=== PATIENT | female | born 1995 | race American Indian/Alaskan Native ===

== ENCOUNTER 2020-09-18 07:11 | Observation (INO) | payer BC ==
--- NOTE | 2020-09-18 07:25 | Event Note ---
ED Screening Note ED Screening Note: hx addisons. n/v cant keep prednisone or fludro down told her to come here menses current This initial assessment/diagnostic orders/clinical plan/treatment(s) is/are subject to change based on patients health status, clinical progression and re- assessment by fellow clinical providers in the ED. Further treatment and workup at subsequent clinical providers discretion. Patient/guardian urged not to elope from the ED as their condition may be serious if not clinically assessed and managed. Initial orders include: labs ua random cortisol
[2020-09-18 07:58] LABS: HCG Qualitative,Urine Negative (Negative)
[2020-09-18 08:01] LABS: Bilirubin,Urine NEG (Negative); Blood,Urine LG (Negative); Color,Urine Yellow (Yellow); Mucus,Urine FEW /HPF; RBC,Urine > 182.0 /HPF (0.0-6.0)
[2020-09-18 08:07] LABS: Hematocrit 32.8 % (30.3-42.9); Hemoglobin 10.3 gm/dl (10.1-14.3); Mean Corpuscular HGB Conc 31 % (30-34); Platelet Count 268 K/mm3 (140-440); Red Blood Count 4.69 M/mm3 (3.65-5.03); Red Cell Distribution Width 15.7 % (13.2-15.2)
--- NOTE | 2020-09-18 08:07 | Emergency Department Report ---
ED General Adult HPI - General Chief complaint: Nausea/Vomiting/Diarrhea Stated complaint: BODYACHE/HEADACHE/EMESIS PUI?: No Time Seen by Provider: 09/18/20 07:23 Source: patient, family, RN notes reviewed Mode of arrival: Ambulatory Limitations: No Limitations - History of Present Illness Initial comments: The patient was evaluated in the emergency department for symptoms described in the history of present illness. He/she was evaluated in the context of the global COVID-19 pandemic, which necessitated consideration that the patient might be at risk for infection with the virus that causes COVID-19. Institutional protocols and algorithms that pertain to the evaluation of patients at risk for COVID-19 are in a state of rapid change based on information released by regulatory bodies including the CDC and federal and s valente organizations. These policies and algorithms were followed during the patient's care in the emergency department. Please note that these policies, procedures and recommendations changed on a rapid basis. During the history and physical examination, I am chaperoned/escorted by THERESE ROSADO Primary CARE doctor: Dr. 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 The patient is a 25-year-old female. She is not known to myself previously. She presents to the ER today with a complaint of painless nausea, vomiting. She states she feels like she is having an addisonian crisis. She denies fever, loss of taste and smell. She has a mild headache which is typical of her previous episodes of crises. She denies loss of vision, sore throat, chest pain, shortness of breath, cough, urinary symptoms. She states that she is not . She does not smoke or use recreational drugs. She is compliant with her medications. She ran out of her fludrocortisone this morning. She has a refill waiting for her at a local pharmacy. She denies sick contacts. She also describes diffuse skin hyperpigmentation, and she also describes bilateral thigh numbness, which is chronic. Symptoms typically improved with fluids and nausea medication. -: Gradual, days(s) Location: left, right, lower extremity (Bilateral lower extremity lateral thigh numbness, from proximal hip to knee.) Severity scale (0 -10): 0 Quality: aching Consistency: intermittent Improves with: medication, rest - Related Data Allergies Allergy/AdvReac Type Severity Reaction Status Date / Time No Known Allergies Allergy Unverified 09/18/20 07:18 ED Review of Systems ROS: Stated complaint: BODYACHE/HEADACHE/EMESIS Other details as noted in HPI Constitutional: malaise. denies: fever Eyes: denies: eye discharge, vision change ENT: denies: throat pain Respiratory: denies: cough Cardiovascular: palpitations. denies: chest pain Gastrointestinal: nausea, vomiting. denies: abdominal pain, diarrhea Genitourinary: denies: dysuria Musculoskeletal: denies: back pain Skin: change in color Neurological: headache. denies: numbness, paresthesias, confusion Hematological/Lymphatic: denies: easy bleeding ED Past Medical Hx - Past Medical History Additional medical history: ADDISION - Surgical History Additional Surgical History: CYST REMOVED/ PART OF BLADDER REMOVED. - Social History Smoking Status: Never Smoker Substance Use Type: None ED Physical Exam - General Limitations: No Limitations General appearance: alert, in no apparent distress, obese - Head Head exam: Present: atraumatic, normocephalic - Eye Eye exam: Present: normal appearance, PERRL, EOMI, other (Visual acuity intact to finger counting, color perception, reading at a close distance). Absent: nystagmus - ENT ENT exam: Present: normal exam, normal orophraynx, mucous membranes moist, normal external ear exam - Neck Neck exam: Present: normal inspection, full ROM. Absent: tenderness, meningismus - Respiratory Respiratory exam: Present: normal lung sounds bilaterally. Absent: respiratory distress, wheezes, rales, rhonchi, stridor, chest wall tenderness - Cardiovascular Cardiovascular Exam: Present: normal rhythm, tachycardia, normal heart sounds. Absent: systolic murmur, diastolic murmur, rubs, gallop - GI/Abdominal GI/Abdominal exam: Present: soft, normal bowel sounds. Absent: distended, tenderness, guarding, rebound, rigid, pulsatile mass - Extremities Exam Extremities exam: Present: normal inspection (Describes decreased sensation to light touch, chronically, in the bilateral lateral thigh distribution, stopping at the knee), full ROM, other (2+ pulses noted in the bilateral upper and lower extremities. There is no palpable cord. negative Homans sign. Muscular compartments are soft. The pelvis is stable.). Absent: pedal edema, calf tenderness - Back Exam Back exam: Present: normal inspection, full ROM. Absent: tenderness, CVA tenderness (R), CVA tenderness (L), paraspinal tenderness, vertebral tenderness - Neurological Exam Neurological exam: Present: alert, oriented X3, normal gait, other (No facial droop. Tongue midline. Extraocular movements intact bilaterally. Facial sensation intact to light touch in V1, V2, V3 distribution bilaterally. 5 and a 5 strength in 4 extremities. Sensation intact to light touch in 4 extremities.). Absent: motor sensory deficit (Sensation is intact to light touch, pinch in the bilateral lower extremities, with downgoing plantar reflexes bilaterally, and proprioception intact in the bilateral lower extremity) - Psychiatric Psychiatric exam: Present: anxious - Skin Skin exam: Present: warm, dry, intact, normal color. Absent: rash ED Course Vital Signs 09/18/20 07:24 Temperature 99 F Pulse Rate 116 H Respiratory 18 Rate Blood Pressure 132/86 [Right] O2 Sat by Pulse 100 Oximetry - Reevaluation(s) Reevaluation #1: 09/18/20 08:44 Differential diagnosis, including but not limited to: Addisonian crisis, dehydration, electrolyte derangement, pneumonia, urinary tract infection Assessment and plan: 25-year-old female, complaining of nausea, vomiting, without abdominal pain, typically takes prednisone and fludrocortisone. She is afebrile with reassuring vital signs, with minimal tachycardia. She states she does not smoke or consume drugs. Abdomen soft and benign. Has a GCS of 15, with a nonfocal neurologic examin ation. We will treat her symptoms, urinalysis not consistent with urinary tract infection, patient currently menstruating, obtain x-ray of the chest, and reassess. 09/18/20 09:21 Patient feels improved. Chest x-ray negative. Laboratory studies suggest metabolic acidosis, dehydration, and profound hypomagnesemia. In addition, she is found to have a prolonged QT, prolonged QTc interval. We have recommended admission for supportive care, cardiac monitoring, and correction of hypomagnesemia. Have discussed this with the patient, who is amenable to this plan of care. She states that she feels somewhat improved. Hospital physician, Dr. Luis Eduardo Mancini to admit ED Medical Decision Making - Lab Data Result diagrams: 09/18/20 07:35 09/18/20 07:35 Vital Signs 09/18/20 07:24 Temperature 99 F Pulse Rate 116 H Respiratory 18 Rate Blood Pressure 132/86 [Right] O2 Sat by Pulse 100 Oximetry Lab Results 09/18/20 09/18/20 09/18/20 Range/Units 07:35 07:35 07:35 WBC 5.4 (4.5-11.0) K/mm3 RBC 4.69 (3.65-5.03) M/mm3 Hgb 10.3 (10.1-14.3) gm/dl Hct 32.8 (30.3-42.9) % MCV 70 L (79-97) fl MCH 22 L (28-32) pg MCHC 31 (30-34) % RDW 15.7 H (13.2-15.2) % Plt Count 268 (140-440) K/mm3 Sodium 131 L (137-145) mmol/L Potassium 5.4 H (3.6-5.0) mmol/L Chloride 98.9 (98-107) mmol/L Carbon Dioxide 20 L (22-30) mmol/L Anion Gap 18 mmol/L BUN 13 (7-17) mg/dL Creatinine 0.6 (0.6-1.2) mg/dL Estimated GFR > 60 ml/min BUN/Creatinine Ratio 22 % Glucose 70 (65-100) mg/dL Calcium 9.7 (8.4-10.2) mg/dL Total Bilirubin 0.60 (0.1-1.2) mg/dL AST 42 H (5-40) units/L ALT 25 (7-56) units/L Alkaline Phosphatase 92 (35-129) units/L Total Protein 8.1 (6.3-8.2) g/dL Albumin 4.7 (3.9-5) g/dL Albumin/Globulin Ratio 1.4 % Lipase 13 (13-60) units/L Urine Color (Yellow) Urine Turbidity (Clear) Urine pH (5.0-7.0) Ur Specific [place] (1.003-1.030) Urine Protein (Negative) mg/dL Urine Glucose (UA) (Negative) mg/dL Urine Ketones (Negative) mg/dL Urine Blood (Negative) Urine Nitrite (Negative) Ur Reducing Substances Urine Bilirubin (Negative) Urine Ictotest Urine Urobilinogen (<2.0) mg/dL Ur Leukocyte Esterase (Negative) Urine WBC (Auto) (0.0-6.0) /HPF Urine RBC (Auto) (0.0-6.0) /HPF U Epithel Cells (Auto) (0-13.0) /HPF Urine Mucus /HPF Urine HCG, Qual (Negative) 09/18/20 Range/Units 07:49 WBC (4.5-11.0) K/mm3 RBC (3.65-5.03) M/mm3 Hgb (10.1-14.3) gm/dl Hct (30.3-42.9) % MCV (79-97) fl MCH (28-32) pg MCHC (30-34) % RDW (13.2-15.2) % Plt Count (140-440) K/mm3 Sodium (137-145) mmol/L Potassium (3.6-5.0) mmol/L Chloride (98-107) mmol/L Carbon Dioxide (22-30) mmol/L Anion Gap mmol/L BUN (7-17) mg/dL Creatinine (0.6-1.2) mg/dL Estimated GFR ml/min BUN/Creatinine Ratio % Glucose (65-100) mg/dL Calcium (8.4-10.2) mg/dL Total Bilirubin (0.1-1.2) mg/dL AST (5-40) units/L ALT (7-56) units/L Alkaline Phosphatase (35-129) units/L Total Protein (6.3-8.2) g/dL Albumin (3.9-5) g/dL Albumin/Globulin Ratio % Lipase (13-60) units/L Urine Color Yellow (Yellow) Urine Turbidity Hazy (Clear) Urine pH 5.0 (5.0-7.0) Ur Specific [place] 1.021 (1.003-1.030) Urine Protein 30 mg/dl (Negative) mg/dL Urine Glucose (UA) Neg (Negative) mg/dL Urine Ketones 80 (Negative) mg/dL Urine Blood Lg (Negative) Urine Nitrite Neg (Negative) Ur Reducing Substances Not Reportable Urine Bilirubin Neg (Negative) Urine Ictotest Not Reportable Urine Urobilinogen 2.0 (<2.0) mg/dL Ur Leukocyte Esterase Neg (Negative) Urine WBC (Auto) 13.0 H (0.0-6.0) /HPF Urine RBC (Auto) > 182.0 (0.0-6.0) /HPF U Epithel Cells (Auto) 3.0 (0-13.0) /HPF Urine Mucus Few /HPF Urine HCG, Qual Negative (Negative) - EKG Data -: EKG Interpreted by Me EKG shows normal: sinus rhythm Rate: normal - EKG Data When compared to previous EKG there are: previous EKG unavailable 09/18/20 09:22 Sinus rhythm, 97 bpm, normal axis, T wave inversions V2, V3, V4 and V5, suspicious for persistent juvenile T wave inversions. QT prolonged, 422 ms. QTC prolonged, 536 ms. Abnormal EKG. - Radiology Data Radiology results: report reviewed, image reviewed X-ray of the chest is negative for acute finding Critical Care Time: Yes Critical care time in (mins) excluding proc time.: 35 Critical care attestation.: If time is entered above; I have spent that time in minutes in the direct care of this critically ill patient, excluding procedure time. ED Disposition Clinical Impression: Hypomagnesemia, Metabolic acidosis, Addisons disease, Dehydration, History of nausea and vomiting, Prolonged Q-T interval on ECG Disposition: OP ADMIT IP TO THIS HOSP Is pt being admited?: Yes Does the pt Need Aspirin: No Condition: Good Referrals: PRIMARY CARE, [Primary Care Provider] - 3-5 Days
[2020-09-18 08:08] LABS: Mean Corpuscular Volume 70 fl (79-97)
[2020-09-18] MEDS ORDERED: LACTATED RINGERS 1,000 ML IV ONE (08:19)
[2020-09-18] MEDS ORDERED: METOCLOPRAMIDE 10 MG/2 ML INJ IV ONE (08:19)
[2020-09-18 08:29] LABS: Alanine Aminotransferase 25 units/L (7-56); Albumin 4.7 g/dL (3.9-5); Blood Urea Nitrogen 13 mg/dL (7-17); Calcium 9.7 mg/dL (8.4-10.2); Hemolysis Index 1
[2020-09-18 08:37] LABS: BUN/Creatinine Ratio 22
--- NOTE | 2020-09-18 08:42 | XRay Report ---
XR chest 1V ap INDICATION / CLINICAL INFORMATION: n/v , weak, becca crisis. COMPARISON: None available. FINDINGS: SUPPORT DEVICES: None. HEART /PULMONARY VASCULATURE: No significant abnormality. LUNGS / PLEURA: No significant pulmonary or pleural abnormality. No pneumothorax. ADDITIONAL FINDINGS: No significant additional findings. IMPRESSION: 1. No acute findings. Signer Name: Gio Lee MD Signed: 09/18/2020 8:38 AM Workstation Name: [id number]
[2020-09-18] MEDS ORDERED: MAGNESIUM SULFATE 2 GM/50 ML BAG IV ONE (09:15)
[2020-09-18] MEDS ORDERED: HYDROCORTISONE SOD SUCC 100 MG/2 ML VIAL IV ONE (09:23)
[2020-09-18] MEDS ORDERED: ACETAMINOPHEN 325 MG TAB PO PRN (09:39)
[2020-09-18] MEDS ORDERED: oxyCODONE /ACETAMINOPHEN 5-325MG TAB PO PRN (09:39)
[2020-09-18] MEDS ORDERED: ONDANSETRON 4 MG/2 ML INJ IV PRN (09:39)
--- NOTE | 2020-09-18 09:51 | History and Physical Report ---
<DAY DAWKINS - Last Filed: 09/18/20 15:10> History of Present Illness Date of examination: 09/18/20 History of present illness: This is a 25 year old with congenital Hooker disease, dyslexia, eczema, anemia s/p Iron infusion and asthma (childhood only) who presented to the ED on 09/18 with complaints of mild headache rated at 6-7/10 and is described as constant, diffuse body aches, diffuse hyperpigmentation, bilateral upper thigh "numbness" and nausea and vomiting 4-5 times yesterday. Upon further questioning patient does not have numbness to bilateral upper thighs however has a throbbing and numbing pain rated at a 8/10 with no alleviating or worsening factors which started today. Patient describes her emesis as yellow in color with no hematemesis or coffee-ground emesis noted. Patient does not complain of any chest pain, chills, shortness of breath, diarrhea, hemoptysis, recent weight loss, night sweats or chills. Patient does endorse having a subjective fever prior to admission. Patient denies any recent sick contacts, recent travel or known exposure to COVID-19. Recommend the emergency department revealed hyponatremia 131, hyperkalemia at 5.4, metabolic acidosis with a CO2 20, prolonged QTC and severe hypomagnesemia at 0.2. In the emergency department she received 3 g of magnesium IV piggyback, 1 L lactated Ringer's, 0.1 mg of Florinef, Reglan and was started on daily magnesium oxide p.o. Patient was admitted to the hospitalist service with acute Hooker's crisis and electrolyte imbalances. Advance care planning conducted in the emergency department, no prior visits to review and home medications reconciled. Past History Past Medical History: other (Joe's disease, Eczema, dyslexia) Past Surgical History: cholecystectomy (2002), Other (craniotomy after ) Social history: single, lives with family, full code. denies: smoking, alcohol abuse, prescription drug abuse, IV drug use Family history: other (sciatica) Medications and Allergies Allergies Allergy/AdvReac Type Severity Reaction Status Date / Time adhesive tape AdvReac Swelling Verified 09/18/20 10:02 Home Medications Medication Instructions Recorded Confirmed Last Taken Type Fludrocortisone [Florinef Tab] 0.05 mg PO QDAY 09/18/20 09/18/20 Unknown History Prednisone [predniSONE ([place]) ER 3 mg PO BID 09/18/20 09/18/20 Unknown History TAB] Active Meds: Active Medications Acetaminophen (Acetaminophen 325 Mg Tab) 650 mg PO Q4H PRN PRN Reason: Pain MILD(1-3)/Fever >100.5/BISHOP Famotidine (Famotidine 20 Mg/2 Ml Inj) 20 mg IV BID [facility] Fludrocortisone Acetate (Fludrocortisone 0.1 Mg Tab) 0.1 mg PO ONCE ONE Stop: 09/18/20 10:01 Hydrocortisone Sodium Succinate (Hydrocortisone Sod Succ 100 Mg/2 Ml Vial) 50 mg IV Q8HR L[facility]AS Magnesium Sulfate 3 gm/ Sodium (Chloride) 106 mls @ 35.333 mls/hr IV ONCE ONE Stop: 09/18/20 13:29 Sodium Chloride (Nacl 0.9% 1000 Ml) 1,000 mls @ 100 mls/hr IV DIRECT [facility] Magnesium Oxide (Magnesium Oxide 400 Mg Tab) 400 mg PO QDAY [facility] Ondansetron HCl (Ondansetron 4 Mg/2 Ml Inj) 4 mg IV Q8H PRN PRN Reason: Nausea And Vomiting Oxycodone/Acetaminophen (Oxycodone /Acetaminophen 5-325mg Tab) 1 tab PO Q6H PRN PRN Reason: Pain, Moderate (4-6) Sodium Chloride (Sodium Chloride 0.9% 10 Ml Flush Syringe) 10 ml IV BID LUCAS Sodium Chloride (Sodium Chloride 0.9% 10 Ml Flush Syringe) 10 ml IV PRN PRN PRN Reason: LINE FLUSH Sodium Polystyrene Sulfonate (Sodium Polystyrene 15 Gm/60 Ml Oral Liqd) 30 gm PO ONCE NR Stop: 09/18/20 15:00 Review of Systems Constitutional: fever (subjective x1 ), no weight loss, no weight gain, no chills, no sweats, no night sweats, no anorexia, no fatigue, no weakness Ears, nose, mouth and throat: headache, no ear pain, no ear discharge, no tinnitis, no decreased hearing, no nose pain, no nasal congestion, no nasal discharge, no sinus pressure, no sinus pain, no epistaxis, no bleeding gums, no dental pain, no mouth pain, no dysphagia, no hoarseness, no sore throat, no swelling in mouth, no swelling in throat, no voice changes, no post-nasal drip Cardiovascular: no chest pain, no orthopnea, no palpitations, no rapid/irregular heart beat, no edema, no syncope, no lightheadedness, no shortness of breath, no dyspnea on exertion, no paroxysmal nocturnal dyspnea, no high blood pressure Respiratory: no cough, no cough with sputum, no excessive sputum, no hemoptysis, no shortness of breath, no dyspnea on exertion, no pain on inspiration Gastrointestinal: abdominal pain, nausea, vomiting, no diarrhea, no constipation, no change in bowel habits, no hematemesis, no coffee ground emesis, no BRBPR, no melena, no hematochezia, no loss of appetite, no early satiety, no heartburn Genitourinary Female: no dyspareunia, no dysmenorrhea, no pelvic pain, no flank pain, no menorrhagia, no dysuria, no urinary frequency, no urgency, no stress incontinence, no post void dribbling, no incomplete emptying, no nocturia, no vaginal itching, no vaginal discharge, no vaginal odor Menstruation: currently menstrual, menses 1-7 days Rectal: no pain, no incontinence, no bleeding, no itching, no hemorrhoids Musculoskeletal: muscle cramps, no neck stiffness, no neck pain, no shooting arm pain, no arm numbness/tingling, no low back pain, no shooting leg pain, no leg numbness/tingling, no redness of joints, no hot joints, no morning stiffness, no frequent falls, no loss of height Integumentary: darkening of skin, dryness, no rash, no pruritis, no redness, no sores, no wounds Neurological: no head injury, no transient paralysis, no paralysis, no weakness, no parathesias, no numbness, no tingling, no seizures, no syncope, no vertigo, no headaches, no change in speech, no changes in smell/taste, no hearing difficulties Psychiatric: no anxiety, no memory loss, no change in sleep habits, no sleep disturbances, no insomnia, no hypersomnia, no disorientation, no paranoia, no depression, no hopelessness, no confusion Endocrine: nocturia, no cold intolerance, no heat intolerance, no polyphagia, no excessive thirst, no polydipsia, no polyuria Hematologic/Lymphatic: no easy bruising, no easy bleeding, no lymphadenopathy, no lymphedema Allergic/Immunologic: no allergic rhinitis, no persistent infections, no angioedema Exam - Constitutional Vitals: Temp Pulse Resp BP Pulse Ox 99 F 116 H 18 132/86 100 09/18/20 07:24 09/18/20 07:24 09/18/20 07:24 09/18/20 07:24 09/18/20 07:24 General appearance: Present: no acute distress - EENT Eyes: Present: PERRL, EOM intact ENT: hearing intact - Neck Neck: Absent: supple - Respiratory Respiratory effort: normal Respiratory: bilateral: CTA - Cardiovascular Rhythm: regular Heart Sounds: Present: S1 & S2. Absent: systolic murmur, diastolic murmur - Extremities Extremities: no ischemia, pulses intact, pulses symmetrical, No edema, normal temperature, Full ROM Extremity abnormal: other (hyperpigmentation) Peripheral Pulses: within normal limits - Abdominal General gastrointestinal: Present: soft, non-tender, non-distended, normal bowel sounds - Integumentary Integumentary: Present: warm, dry - Musculoskeletal Musculoskeletal: strength equal bilaterally - Psychiatric Psychiatric: appropriate mood/affect, cooperative - Neurologic Neurologic: CNII-XII intact, no focal deficits, moves all extremities - Allied Health Allied health notes reviewed: nursing Results - Labs CBC & Chem 7: 09/18/20 07:35 09/18/20 07:35 Labs: Abnormal lab results 09/18/20 09/18/20 09/18/20 Range/Units 07:35 07:35 07:35 MCV 70 L (79-97) fl MCH 22 L (28-32) pg RDW 15.7 H (13.2-15.2) % Sodium 131 L (137-145) mmol/L Potassium 5.4 H (3.6-5.0) mmol/L Carbon Dioxide 20 L (22-30) mmol/L Magnesium 0.20 L* (1.7-2.3) mg/dL AST 42 H (5-40) units/L Total Creatine Kinase < 7 L (30-135) units/L Urine WBC (Auto) (0.0-6.0) /HPF 09/18/20 Range/Units 07:49 MCV (79-97) fl MCH (28-32) pg RDW (13.2-15.2) % Sodium (137-145) mmol/L Potassium (3.6-5.0) mmol/L Carbon Dioxide (22-30) mmol/L Magnesium (1.7-2.3) mg/dL AST (5-40) units/L Total Creatine Kinase (30-135) units/L Urine WBC (Auto) 13.0 H (0.0-6.0) /HPF - Imaging and Cardiology Chest x-ray: report reviewed (no acute findings), image reviewed Assessment and Plan Addisons Crisis -Presented with mild h/a, nausea, vomiting, without abdominal pain, hyperkalemia, hypomagnesiumia, hyponaturemia, metabolic acidosis with nausea -s/p 1L LR, hydrocortisone 100 mg, and fludrocortisone 0.1 mg, 3 g Mag sulfate in the ED -Started on Mag oxide 400 qday in the ED -09/18 Cortosil pending -Supportive care -Restart home meds when available and appropriate Hypomagnesiumia -Presented with Mg 0.6 -s/p 3 g Mag sulfate in the ED -Started on Mag oxide 400 qday in the ED -Stat Mag and replete as necessary -Trend Mag -09/18 Ca 9.7 -Daily EKG for changes Hyperkalemia -09/18 K 5.4 -30mg Kaexlate -Trend K -Intervene as appropriate Hyponatremia -Presented with Na 131 -IVF -Trend Na -Monitor neuro status Metabolic Acidosis -Presented with CO2 20 on BMP -s/p 1L LR in the ED -MIVF -Trend BMP DVT prophylaxis -GI prophylaxis -SCDs to BLE while in bed -Lovenox subq Full Code <JANELL KHALIL R - Last Filed: 09/19/20 06:01> History of Present Illness Date of admission: 09/18/20 09:25 Chief complaint: Nausea/vomiting Medications and Allergies Active Meds: Active Medications Acetaminophen (Acetaminophen 325 Mg Tab) 650 mg PO Q4H PRN PRN Reason: Pain MILD(1-3)/Fever >100.5/BISHOP Enoxaparin Sodium (Enoxaparin 40 Mg/0.4 Ml Inj) 40 mg SUB-Q QDAY@1000 LUCAS Famotidine (Famotidine 20 Mg/2 Ml Inj) 20 mg IV BID [facility] Last Admin: 09/18/20 22:55 Dose: 20 mg Documented by: Fludrocortisone Acetate (Fludrocortisone 0.1 Mg Tab) 0.05 mg PO QDAY [facility] Sodium Chloride (Nacl 0.9% 1000 Ml) 1,000 mls @ 75 mls/hr IV DIRECT [facility] Last Admin: 09/18/20 11:30 Dose: 75 mls/hr Documented by: Magnesium Oxide (Magnesium Oxide 400 Mg Tab) 400 mg PO QDAY [facility] Last Admin: 09/18/20 10:09 Dose: 400 mg Documented by: Oxycodone/Acetaminophen (Oxycodone /Acetaminophen 5-325mg Tab) 1 tab PO Q6H PRN PRN Reason: Pain, Moderate (4-6) Prednisone (Prednisone 5 Mg/5 Ml Oral Liquid) 3 mg PO BID [facility] Last Admin: 09/18/20 23:00 Dose: 3 mg Documented by: Prochlorperazine Edisylate (Prochlorperazine Edisylate 10 Mg/2 Ml Vial) 5 mg IV Q6H PRN PRN Reason: Nausea And Vomiting Sodium Chloride (Sodium Chloride 0.9% 10 Ml Flush Syringe) 10 ml IV BID [facility] Last Admin: 09/18/20 22:55 Dose: 10 ml Documented by: Sodium Chloride (Sodium Chloride 0.9% 10 Ml Flush Syringe) 10 ml IV PRN PRN PRN Reason: LINE FLUSH Exam - Constitutional Vitals: Temp Pulse Resp BP Pulse Ox 97.6 F 76 18 90/49 100 09/19/20 04:56 09/19/20 04:56 09/19/20 04:56 09/19/20 04:56 09/19/20 04:56 Results - Labs CBC & Chem 7: 09/18/20 07:35 09/18/20 07:35 Labs: Abnormal lab results 09/18/20 09/18/20 09/18/20 Range/Units 07:35 07:35 07:35 MCV 70 L (79-97) fl MCH 22 L (28-32) pg RDW 15.7 H (13.2-15.2) % Sodium 131 L (137-145) mmol/L Potassium 5.4 H (3.6-5.0) mmol/L Carbon Dioxide 20 L (22-30) mmol/L Phosphorus (2.5-4.5) mg/dL Magnesium 0.20 L* (1.7-2.3) mg/dL AST 42 H (5-40) units/L Total Creatine Kinase < 7 L (30-135) units/L Urine WBC (Auto) (0.0-6.0) /HPF 09/18/20 09/18/20 09/18/20 Range/Units 07:35 07:49 13:12 MCV (79-97) fl MCH (28-32) pg RDW (13.2-15.2) % Sodium (137-145) mmol/L Potassium (3.6-5.0) mmol/L Carbon Dioxide (22-30) mmol/L Phosphorus 5.10 H (2.5-4.5) mg/dL Magnesium 1.50 L (1.7-2.3) mg/dL AST (5-40) units/L Total Creatine Kinase (30-135) units/L Urine WBC (Auto) 13.0 H (0.0-6.0) /HPF Assessment and Plan I saw and evaluated the patient. I agree with the findings and the plan of care as documented in the Nurse Practitioner's~note,
[2020-09-18] MEDS ORDERED: FLUDROCORTISONE 0.1 MG TAB PO ONE (10:00)
[2020-09-18] MEDS ORDERED: MAGNESIUM SULFATE 1 GM in SODIUM CHLORIDE 0.9% 50 ML IV ONE (10:00)
[2020-09-18] MEDS: MAGNESIUM OXIDE 400 MG TAB PO SCH (10:09)
[2020-09-18] MEDS: FAMOTIDINE 20 MG/2 ML INJ IV SCH ×2 (10:10→22:55)
[2020-09-18] MEDS ORDERED: MAGNESIUM SULFATE 3 GM in SODIUM CHLORIDE 0.9% 100 ML IV ONE (10:30)
[2020-09-18] MEDS ORDERED: SODIUM POLYSTYRENE 15 GM/60 ML ORAL LIQD PO NR (10:30)
[2020-09-18] MEDS: SODIUM CHLORIDE 0.9% 1000 ML 1,000 ML IV SCH (11:30)
[2020-09-18] MEDS ORDERED: PROCHLORPERAZINE EDISYLATE 10 MG/2 ML VIAL IV PRN (12:47)
[2020-09-18] MEDS ORDERED: HYDROCORTISONE SOD SUCC 100 MG/2 ML VIAL IV SCH (14:00)
[2020-09-18] MEDS ORDERED: MAGNESIUM OXIDE 400 MG TAB PO ONE (18:00)
[2020-09-18] MEDS ORDERED: PREDNISONE 1 MG PO SCH (22:00)
[2020-09-18] MEDS: predniSONE 5 MG/5 ML ORAL LIQUID PO SCH (23:00)
[2020-09-19 06:02] LABS: Blood Urea Nitrogen 8 mg/dL (7-17); Calcium 9.2 mg/dL (8.4-10.2); Hemolysis Index 0
[2020-09-19 06:08] LABS: Basophils # (Auto) 0.1 K/mm3 (0.0-0.1); Eosinophils % (Auto) 0.3 % (0.0-4.3); Hematocrit 27.6 % (30.3-42.9); Hemoglobin 8.8 gm/dl (10.1-14.3); Lymphocytes # (Auto) 0.8 K/mm3 (1.2-5.4); Lymphocytes % (Auto) 14.8 % (13.4-35.0); Mean Corpuscular HGB Conc 32 % (30-34); Monocytes # (Auto) 0.3 K/mm3 (0.0-0.8); Monocytes % (Auto) 4.9 % (0.0-7.3); Platelet Count 240 K/mm3 (140-440); Red Blood Count 3.98 M/mm3 (3.65-5.03); Red Cell Distribution Width 15.6 % (13.2-15.2)
[2020-09-19 06:15] LABS: BUN/Creatinine Ratio 16; Mean Corpuscular Volume 69 fl (79-97)
[2020-09-19] MEDS: SODIUM CHLORIDE 0.9% 1000 ML 1,000 ML IV SCH (06:32)
[2020-09-19] MEDS ORDERED: SODIUM CHLORIDE 0.9% 1000 ML 1,000 ML IV ONE (07:46)
[2020-09-19] MEDS ORDERED: ENOXAPARIN 30 MG/0.3 ML INJ SUB-Q SCH ×2 (10:00)
[2020-09-19] MEDS: predniSONE 5 MG/5 ML ORAL LIQUID PO SCH ×2 (10:40→21:41)
[2020-09-19] MEDS: MAGNESIUM OXIDE 400 MG TAB PO SCH (10:41)
[2020-09-19] MEDS: FLUDROCORTISONE 0.1 MG TAB PO SCH (10:41)
[2020-09-19] MEDS: ENOXAPARIN 40 MG/0.4 ML INJ SUB-Q SCH (10:41)
[2020-09-19] MEDS: FAMOTIDINE 20 MG/2 ML INJ IV SCH ×2 (10:42→21:42)
--- NOTE | 2020-09-19 14:17 | Progress Note ---
<JUANCHODAY BridgetRamon - Last Filed: 09/19/20 14:21> Assessment and Plan Assessment and plan: Addisons Crisis -Presented with mild h/a, nausea, vomiting, without abdominal pain, hyperkalemia, hypomagnesiumia, hyponaturemia, metabolic acidosis with nausea -s/p 1L LR, hydrocortisone 100 mg, and fludrocortisone 0.1 mg, 3 g Mag sulfate in the ED -Started on Mag oxide 400 qday in the ED -09/18 Cortosil pending -Supportive care -Continue home medications Hyponatremia, acute -Presented with Na 131 -IVF -Trend Na -Monitor neuro status -09/19 Na 135 Hypophosphatemia, acute -Presented with a phosphorus of 5.10 -09/19 phosphorus 1.7 -Replete with p.o. K-Phos -Trend phosphorus Hypomagnesiumia, resolved -Presented with Mg 0.6 -s/p 3 g Mag sulfate in the ED -09/16 Mg 1.6 -Started on Mag oxide 400 qday in the ED -Stat Mag and replete as necessary -Trend Mag -09/18 Ca 9.7 -Daily EKG for changes -09/19 Mg 1.7 Hyperkalemia, resolved -09/18 K 5.4 -30mg Kaexlate -Trend K -Intervene as appropriate -09/19 K 3.7 Metabolic Acidosis, resolved -Presented with CO2 20 on BMP -s/p 1L LR in the ED -MIVF -Trend BMP -09/19 CO2 23 Hyperphosphatemia, resolved -Presented with a phosphorus of 5.10 -MIVF -Trend phosphorus DVT prophylaxis -GI prophylaxis -SCDs to BLE while in bed -Lovenox subq History Interval history: This is a 25 year 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 Upon further questioning patient does not have numbness to bilateral upper thighs however has a throbbing and numbing pain rated at a 8/10 with no alleviating or worsening factors which started today. Workup in the emergency department revealed hyponatremia 131, hyperkalemia at 5.4, metabolic acidosis with a CO2 20, prolonged QTC and severe hypomagnesemia at 0.2. In the emergency department she received 3 g of magnesium IV piggyback, 1 L lactated Ringer's, 0.1 mg of Florinef, Reglan and was started on daily magnesium oxide p.o. Patient was admitted to the hospitalist service with acute Stratford's crisis and electrolyte imbalances. -09/19: Patient has hypophosphatemia which was repleted and mild hyponatremia and she is on IV fluids. This morning it was noted that the patient was hypotensive overnight and she received a normal saline bolus of 1 L. Hospitalist Physical - Constitutional Vitals: Temp Pulse Resp BP Pulse Ox 97.6 F 77 16 98/56 100 09/19/20 04:56 09/19/20 10:46 09/19/20 10:46 09/19/20 10:46 09/19/20 10:46 General appearance: Present: no acute distress - EENT Eyes: Present: PERRL, EOM intact ENT: hearing intact, clear oral mucosa - Neck Neck: Present: normal ROM - Respiratory Respiratory effort: normal Respiratory: bilateral: CTA - Cardiovascular Rhythm: regular Heart Sounds: Present: S1 & S2. Absent: systolic murmur, diastolic murmur - Extremities Extremities: no ischemia, pulses intact, pulses symmetrical, No edema, normal temperature, normal color, Full ROM Peripheral Pulses: within normal limits - Abdominal General gastrointestinal: soft, non-tender, non-distended, normal bowel sounds - Integumentary Integumentary: Present: warm, dry - Psychiatric Psychiatric: appropriate mood/affect, cooperative - Neurologic Neurologic: CNII-XII intact, no focal deficits, moves all extremities - Allied Health Allied health notes reviewed: nursing Results - Labs CBC & Chem 7: 09/19/20 04:46 09/19/20 04:46 Labs: Laboratory Last Values WBC 5.6 K/mm3 (4.5-11.0) 09/19/20 04:46 RBC 3.98 M/mm3 (3.65-5.03) 09/19/20 04:46 Hgb 8.8 gm/dl (10.1-14.3) L 09/19/20 04:46 Hct 27.6 % (30.3-42.9) L 09/19/20 04:46 MCV 69 fl (79-97) L 09/19/20 04:46 MCH 22 pg (28-32) L 09/19/20 04:46 MCHC 32 % (30-34) 09/19/20 04:46 RDW 15.6 % (13.2-15.2) H 09/19/20 04:46 Plt Count 240 K/mm3 (140-440) 09/19/20 04:46 Lymph % (Auto) 14.8 % (13.4-35.0) 09/19/20 04:46 [place] % (Auto) 4.9 % (0.0-7.3) 09/19/20 04:46 Eos % (Auto) 0.3 % (0.0-4.3) 09/19/20 04:46 Baso % (Auto) 1.0 % (0.0-1.8) 09/19/20 04:46 Lymph # (Auto) 0.8 K/mm3 (1.2-5.4) L 09/19/20 04:46 [place] # (Auto) 0.3 K/mm3 (0.0-0.8) 09/19/20 04:46 Eos # (Auto) 0.0 K/mm3 (0.0-0.4) 09/19/20 04:46 Baso # (Auto) 0.1 K/mm3 (0.0-0.1) 09/19/20 04:46 Seg Neutrophils % 79.0 % (40.0-70.0) H 09/19/20 04:46 Seg Neutrophils # 4.4 K/mm3 (1.8-7.7) 09/19/20 04:46 Sodium 135 mmol/L (137-145) L 09/19/20 04:46 Potassium 3.7 mmol/L (3.6-5.0) D 09/19/20 04:46 Chloride 101.5 mmol/L (98-107) 09/19/20 04:46 Carbon Dioxide 23 mmol/L (22-30) 09/19/20 04:46 Anion Gap 14 mmol/L 09/19/20 04:46 BUN 8 mg/dL (7-17) 09/19/20 04:46 Creatinine 0.5 mg/dL (0.6-1.2) L 09/19/20 04:46 Estimated GFR > 60 ml/min 09/19/20 04:46 BUN/Creatinine Ratio 16 % 09/19/20 04:46 Glucose 108 mg/dL (65-100) H 09/19/20 04:46 Calcium 9.2 mg/dL (8.4-10.2) 09/19/20 04:46 Phosphorus 1.70 mg/dL (2.5-4.5) L D 09/19/20 04:46 Magnesium 1.70 mg/dL (1.7-2.3) 09/19/20 04:46 Total Bilirubin 0.60 mg/dL (0.1-1.2) 09/18/20 07:35 AST 42 units/L (5-40) H 09/18/20 07:35 ALT 25 units/L (7-56) 09/18/20 07:35 Alkaline Phosphatase 92 units/L (35-129) 09/18/20 07:35 Total Creatine Kinase < 7 units/L (30-135) L 09/18/20 07:35 Total Protein 8.1 g/dL (6.3-8.2) 09/18/20 07:35 Albumin 4.7 g/dL (3.9-5) 09/18/20 07:35 Albumin/Globulin Ratio 1.4 % 09/18/20 07:35 Lipase 13 units/L (13-60) 09/18/20 07:35 Urine Color Yellow (Yellow) 09/18/20 07:49 Urine Turbidity Hazy (Clear) 09/18/20 07:49 Urine pH 5.0 (5.0-7.0) 09/18/20 07:49 Ur Specific [place] 1.021 (1.003-1.030) 09/18/20 07:49 Urine Protein 30 mg/dl mg/dL (Negative) 09/18/20 07:49 Urine Glucose (UA) Neg mg/dL (Negative) 09/18/20 07:49 Urine Ketones 80 mg/dL (Negative) 09/18/20 07:49 Urine Blood Lg (Negative) 09/18/20 07:49 Urine Nitrite Neg (Negative) 09/18/20 07:49 Ur Reducing Substances Not Reportable 09/18/20 07:49 Urine Bilirubin Neg (Negative) 09/18/20 07:49 Urine Ictotest Not Reportable 09/18/20 07:49 Urine Urobilinogen 2.0 mg/dL (<2.0) 09/18/20 07:49 Ur Leukocyte Esterase Neg (Negative) 09/18/20 07:49 Urine WBC (Auto) 13.0 /HPF (0.0-6.0) H 09/18/20 07:49 Urine RBC (Auto) > 182.0 /HPF (0.0-6.0) 09/18/20 07:49 U Epithel Cells (Auto) 3.0 /HPF (0-13.0) 09/18/20 07:49 Urine Mucus Few /HPF 09/18/20 07:49 Urine HCG, Qual Negative (Negative) 09/18/20 07:49 Chao/IV: Voiding Method Toilet IV Catheter Type [Right INT / Saline Lock Antecubital] Active Medications - Current Medications Current Medications: Generic Name Dose Route Start Last Admin Trade Name Freq PRN Reason Stop Dose Admin Acetaminophen 650 mg 09/18/20 09:39 Acetaminophen 325 Mg Tab PO Q4H PRN Pain MILD(1-3)/Fever >100.5/BISHOP Docusate Sodium 100 mg 09/19/20 11:00 Docusate Sodium 100 Mg Cap PO BID LUCAS Enoxaparin Sodium 40 mg 09/19/20 10:00 09/19/20 10:41 Enoxaparin 40 Mg/0.4 Ml Inj SUB-Q 40 mg QDAY@1000 LUCAS Administration Famotidine 20 mg 09/18/20 10:00 09/19/20 10:42 Famotidine 20 Mg/2 Ml Inj IV 20 mg BID LUCAS Administration Fludrocortisone Acetate 0.05 mg 09/19/20 10:00 09/19/20 10:41 Fludrocortisone 0.1 Mg Tab PO 0.05 mg QDAY LUCAS Administration Sodium Chloride 1,000 mls @ 75 mls/hr 09/18/20 09:45 09/19/20 06:32 Nacl 0.9% 1000 Ml IV 75 mls/hr DIRECT LUCAS Administration Magnesium Oxide 400 mg 09/18/20 10:00 09/19/20 10:41 Magnesium Oxide 400 Mg Tab PO 400 mg QDAY LUCAS Administration Oxycodone/Acetaminophen 1 tab 09/18/20 09:39 Oxycodone /Acetaminophen 5-325mg Tab PO Q6H PRN Pain, Moderate (4-6) Prednisone 3 mg 09/18/20 22:00 09/19/20 10:40 Prednisone 5 Mg/5 Ml Oral Liquid PO 3 mg BID LUCAS Administration Prochlorperazine Edisylate 5 mg 09/18/20 12:47 Prochlorperazine Edisylate 10 Mg/2 Ml Vial IV Q6H PRN Nausea And Vomiting Sodium Chloride 10 ml 09/18/20 10:00 09/19/20 10:42 Sodium Chloride 0.9% 10 Ml Flush Syringe IV 10 ml BID LUCAS Administration Sodium Chloride 10 ml 09/18/20 09:39 Sodium Chloride 0.9% 10 Ml Flush Syringe IV PRN PRN LINE FLUSH Sodium Phosphate 250 mg 09/19/20 14:00 K-Phos Neutral 250 Mg Tab PO 09/20/20 13:59 QID LUCAS <DAGO CARRINGTON L - Last Filed: 09/20/20 09:35> Assessment and Plan Disposition Plan: Patient directly seen and examined by myself with practitioner. Hospitalist Physical - Constitutional Vitals: Temp Pulse Resp BP Pulse Ox 97.8 F 74 16 108/63 100 09/20/20 08:44 09/20/20 08:44 09/20/20 08:44 09/20/20 08:44 09/20/20 08:44 Results - Labs CBC & Chem 7: 09/19/20 04:46 09/20/20 05:00 Labs: Laboratory Last Values WBC 5.6 K/mm3 (4.5-11.0) 09/19/20 04:46 RBC 3.98 M/mm3 (3.65-5.03) 09/19/20 04:46 Hgb 8.8 gm/dl (10.1-14.3) L 09/19/20 04:46 Hct 27.6 % (30.3-42.9) L 09/19/20 04:46 MCV 69 fl (79-97) L 09/19/20 04:46 MCH 22 pg (28-32) L 09/19/20 04:46 MCHC 32 % (30-34) 09/19/20 04:46 RDW 15.6 % (13.2-15.2) H 09/19/20 04:46 Plt Count 240 K/mm3 (140-440) 09/19/20 04:46 Lymph % (Auto) 14.8 % (13.4-35.0) 09/19/20 04:46 [place] % (Auto) 4.9 % (0.0-7.3) 09/19/20 04:46 Eos % (Auto) 0.3 % (0.0-4.3) 09/19/20 04:46 Baso % (Auto) 1.0 % (0.0-1.8) 09/19/20 04:46 Lymph # (Auto) 0.8 K/mm3 (1.2-5.4) L 09/19/20 04:46 [place] # (Auto) 0.3 K/mm3 (0.0-0.8) 09/19/20 04:46 Eos # (Auto) 0.0 K/mm3 (0.0-0.4) 09/19/20 04:46 Baso # (Auto) 0.1 K/mm3 (0.0-0.1) 09/19/20 04:46 Seg Neutrophils % 79.0 % (40.0-70.0) H 09/19/20 04:46 Seg Neutrophils # 4.4 K/mm3 (1.8-7.7) 09/19/20 04:46 Sodium 141 mmol/L (137-145) 09/20/20 05:00 Potassium 3.7 mmol/L (3.6-5.0) 09/20/20 05:00 Chloride 106.0 mmol/L (98-107) 09/20/20 05:00 Carbon Dioxide 26 mmol/L (22-30) 09/20/20 05:00 Anion Gap 13 mmol/L 09/20/20 05:00 BUN 7 mg/dL (7-17) 09/20/20 05:00 Creatinine 0.4 mg/dL (0.6-1.2) L 09/20/20 05:00 Estimated GFR > 60 ml/min 09/20/20 05:00 BUN/Creatinine Ratio 18 % 09/20/20 05:00 Glucose 96 mg/dL (65-100) 09/20/20 05:00 Calcium 8.5 mg/dL (8.4-10.2) 09/20/20 05:00 Phosphorus 2.70 mg/dL (2.5-4.5) D 09/20/20 05:00 Magnesium 1.70 mg/dL (1.7-2.3) 09/20/20 05:00 Total Bilirubin 0.60 mg/dL (0.1-1.2) 09/18/20 07:35 AST 42 units/L (5-40) H 09/18/20 07:35 ALT 25 units/L (7-56) 09/18/20 07:35 Alkaline Phosphatase 92 units/L (35-129) 09/18/20 07:35 Total Creatine Kinase < 7 units/L (30-135) L 09/18/20 07:35 Total Protein 8.1 g/dL (6.3-8.2) 09/18/20 07:35 Albumin 4.7 g/dL (3.9-5) 09/18/20 07:35 Albumin/Globulin Ratio 1.4 % 09/18/20 07:35 Lipase 13 units/L (13-60) 09/18/20 07:35 Urine Color Yellow (Yellow) 09/18/20 07:49 Urine Turbidity Hazy (Clear) 09/18/20 07:49 Urine pH 5.0 (5.0-7.0) 09/18/20 07:49 Ur Specific [place] 1.021 (1.003-1.030) 09/18/20 07:49 Urine Protein 30 mg/dl mg/dL (Negative) 09/18/20 07:49 Urine Glucose (UA) Neg mg/dL (Negative) 09/18/20 07:49 Urine Ketones 80 mg/dL (Negative) 09/18/20 07:49 Urine Blood Lg (Negative) 09/18/20 07:49 Urine Nitrite Neg (Negative) 09/18/20 07:49 Ur Reducing Substances Not Reportable 09/18/20 07:49 Urine Bilirubin Neg (Negative) 09/18/20 07:49 Urine Ictotest Not Reportable 09/18/20 07:49 Urine Urobilinogen 2.0 mg/dL (<2.0) 09/18/20 07:49 Ur Leukocyte Esterase Neg (Negative) 09/18/20 07:49 Urine WBC (Auto) 13.0 /HPF (0.0-6.0) H 09/18/20 07:49 Urine RBC (Auto) > 182.0 /HPF (0.0-6.0) 09/18/20 07:49 U Epithel Cells (Auto) 3.0 /HPF (0-13.0) 09/18/20 07:49 Urine Mucus Few /HPF 09/18/20 07:49 Urine HCG, Qual Negative (Negative) 09/18/20 07:49 Microbiology: Microbiology 09/18/20 07:49 Urine,Clean Catch Urine Culture - Preliminary Chao/IV: Voiding Method Toilet IV Catheter Type [Right INT / Saline Lock Antecubital] Active Medications - Current Medications Current Medications: Generic Name Dose Route Start Last Admin Trade Name Freq PRN Reason Stop Dose Admin Acetaminophen 650 mg 09/18/20 09:39 Acetaminophen 325 Mg Tab PO Q4H PRN Pain MILD(1-3)/Fever >100.5/BISHOP Docusate Sodium 100 mg 09/19/20 11:00 09/19/20 21:42 Docusate Sodium 100 Mg Cap PO 100 mg BID LUCAS Administration Enoxaparin Sodium 40 mg 09/19/20 10:00 09/19/20 10:41 Enoxaparin 40 Mg/0.4 Ml Inj SUB-Q 40 mg QDAY@1000 LUCAS Administration Famotidine 20 mg 09/18/20 10:00 09/19/20 21:42 Famotidine 20 Mg/2 Ml Inj IV 20 mg BID LUCAS Administration Fludrocortisone Acetate 0.05 mg 09/19/20 10:00 09/19/20 10:41 Fludrocortisone 0.1 Mg Tab PO 0.05 mg QDAY LUCAS Administration Sodium Chloride 1,000 mls @ 75 mls/hr 09/18/20 09:45 09/19/20 06:32 Nacl 0.9% 1000 Ml IV 75 mls/hr DIRECT LUCAS Administration Magnesium Oxide 400 mg 09/18/20 10:00 09/19/20 10:41 Magnesium Oxide 400 Mg Tab PO 400 mg QDAY LUCAS Administration Oxycodone/Acetaminophen 1 tab 09/18/20 09:39 Oxycodone /Acetaminophen 5-325mg Tab PO Q6H PRN Pain, Moderate (4-6) Prednisone 3 mg 09/18/20 22:00 09/19/20 21:41 Prednisone 5 Mg/5 Ml Oral Liquid PO 3 mg BID LUCAS Administration Prochlorperazine Edisylate 5 mg 09/18/20 12:47 Prochlorperazine Edisylate 10 Mg/2 Ml Vial IV Q6H PRN Nausea And Vomiting Sodium Chloride 10 ml 09/18/20 10:00 09/19/20 21:42 Sodium Chloride 0.9% 10 Ml Flush Syringe IV 10 ml BID LUCAS Administration Sodium Chloride 10 ml 09/18/20 09:39 Sodium Chloride 0.9% 10 Ml Flush Syringe IV PRN PRN LINE FLUSH Sodium Phosphate 250 mg 09/19/20 14:00 09/19/20 21:41 K-Phos Neutral 250 Mg Tab PO 09/20/20 13:59 250 mg QID LUCAS Administration
[2020-09-19] MEDS: K-PHOS NEUTRAL 250 MG TAB PO SCH ×3 (14:57→21:41)
[2020-09-19] MEDS: DOCUSATE SODIUM 100 MG CAP PO SCH ×2 (16:56→21:42)
[2020-09-20 05:52] LABS: BUN/Creatinine Ratio 18; Blood Urea Nitrogen 7 mg/dL (7-17); Calcium 8.5 mg/dL (8.4-10.2); Hemolysis Index 1
[2020-09-20 08:46] VITALS: BP 108/63
[2020-09-20] MEDS: predniSONE 5 MG/5 ML ORAL LIQUID PO SCH (10:49)
[2020-09-20] MEDS: FLUDROCORTISONE 0.1 MG TAB PO SCH (10:50)
[2020-09-20] MEDS: DOCUSATE SODIUM 100 MG CAP PO SCH (10:50)
[2020-09-20] MEDS: MAGNESIUM OXIDE 400 MG TAB PO SCH (10:50)
[2020-09-20] MEDS: ENOXAPARIN 40 MG/0.4 ML INJ SUB-Q SCH (10:50)
[2020-09-20] MEDS: FAMOTIDINE 20 MG/2 ML INJ IV SCH (10:50)
[2020-09-20] MEDS: K-PHOS NEUTRAL 250 MG TAB PO SCH (10:50)
--- NOTE | 2020-09-20 11:44 | Discharge Summary ---
Providers - Providers Date of Admission: 09/18/20 09:25 Date of discharge: 09/20/20 Attending physician: DAGO CARRINGTON none Primary care physician: TOOL OR DIE DRAWING CHECKER Hospitalization Condition: Good Hospital course: Patient presented with [place]'s crisis and its associated electrolyte imbalances. Patient's chief complaint was excessive nausea vomiting unable to keep food down. Patient had extensive electrolyte abnormalities hypomagnesemia hypokalemia hypophosphatemia and hypotension. All patient's electrolytes were corrected. Patient potassium 3.7 upon discharge given K-Phos. Magnesium corrected from 0.2-1.7 and QT interval closed. Patient also had sodium 131 now 137 and phosphorus 2.70. Patient blood pressure remained about her baseline 108/63. Patient stable for discharge nausea vomiting resolved abdominal pain resolved paresthesia of lower extremities resolved. 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 Disposition: TO HOME OR SELFCARE - Discharge Diagnoses (1) Addisonian crisis Status: Acute (2) Hypomagnesemia Status: Acute (3) Hypophosphatemia Status: Acute (4) Hyponatremia Status: Acute (5) Hypotension Status: Acute Core Measure Documentation - Palliative Care Palliative Care/ Comfort Measures: Not Applicable - Core Measures Any of the following diagnoses?: none Exam - Constitutional Vitals: Temp Pulse Resp BP Pulse Ox 97.8 F 74 16 108/63 100 09/20/20 08:44 09/20/20 08:44 09/20/20 08:44 09/20/20 08:44 09/20/20 08:44 General appearance: Present: no acute distress, well-nourished - EENT Eyes: Present: PERRL ENT: hearing intact, clear oral mucosa - Neck Neck: Present: supple, normal ROM - Respiratory Respiratory effort: normal Respiratory: bilateral: CTA - Cardiovascular Heart Sounds: Present: S1 & S2. Absent: rub, click - Extremities Extremities: pulses symmetrical, No edema Peripheral Pulses: within normal limits - Abdominal General gastrointestinal: Present: soft, non-tender, non-distended, normal bowel sounds Female genitourinary: Present: normal - Integumentary Integumentary: Present: clear, warm, dry - Musculoskeletal Musculoskeletal: gait normal, strength equal bilaterally - Psychiatric Psychiatric: appropriate mood/affect, intact judgment & insight - Neurologic Neurologic: CNII-XII intact, moves all extremities Plan Activity: no restrictions, fall precautions Weight Bearing Status: Full Weight Bearing Diet: regular Follow up with: PRIMARY CARE, [Primary Care Provider] - 3-5 Days Prescriptions: Fludrocortisone [Florinef] 0.05 mg PO QDAY #30 Phosphorus #1 [K-Phos Neutral] 250 mg PO QID #7 tablet Magnesium Oxide [Mag-Ox] 400 mg PO QDAY #7 tablet predniSONE [predniSONE Oral Liq] 3 mg PO BID #30 oral.liqd
== END 2020-09-20 12:30 | disposition home or self-care (01) ==
LOC: ED 07:11 → 4A 09:25
PROVIDERS: ADMIT Internal Medicine; ATTEND Internal Medicine
DX: E27.2 Addisonian crisis (principal); E87.5 Hyperkalemia; E87.1 Hypo-osmolality and hyponatremia; E27.1 Primary adrenocortical insufficiency; R94.31 Abnormal electrocardiogram [ECG] [EKG]; E87.2 Acidosis; E86.0 Dehydration; E83.42 Hypomagnesemia; E83.39 Other disorders of phosphorus metabolism; I95.9 Hypotension, unspecified; Z90.49 Acquired absence of other specified parts of digestive tract; Z98.890 Other specified postprocedural states; Z87.898 Personal history of other specified conditions; Z79.899 Other long term (current) drug therapy
CPT/HCPCS: 36415; 71045; 80048; 80053; 81001; 81025; 82533; 82550; 83690; 83735; 84100; 85025; 85027; 87086; 93005; 96361; 96372; 96374; 96375; 96376; 99291; G0378; J1650; J1720; J2765; J3475; J7030; J7120; J7512

== ENCOUNTER 2021-05-30 10:58 | Emergency (ER) | payer BC ==
[2021-05-30 11:06] VITALS: BP 114/75
--- NOTE | 2021-05-30 11:14 | Emergency Department Report ---
ED ENT HPI - General Chief complaint: Dental/Oral Stated complaint: TOOTHACHE Time Seen by Provider: 05/30/21 11:06 Source: patient Mode of arrival: Ambulatory Limitations: No Limitations - History of Present Illness Initial comments: Patient is a 25-year-old female presents emergency room complaints of right lower dental pain that began a week ago. Patient states that she cracked her right lower back molar. She states she was advised by dentist that it needs to be removed. States her appointment is not until June. She denies any fever, vomiting, diarrhea, difficulty swallowing, difficulty breathing. 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 No allergies to medications. - Related Data Home Medications Medication Instructions Recorded Confirmed Last Taken Prednisone [predniSONE ([place]) ER 3 mg PO BID 09/18/20 09/18/20 Unknown TAB] Previous Rx's Medication Instructions Recorded Last Taken Type Fludrocortisone [Florinef] 0.05 mg PO QDAY #30 09/20/20 Unknown Rx Magnesium Oxide [Mag-Ox] 400 mg PO QDAY #7 tablet 09/20/20 Unknown Rx Phosphorus #1 [K-Phos Neutral] 250 mg PO QID #7 tablet 09/20/20 Unknown Rx predniSONE [predniSONE Oral Liq] 3 mg PO BID #30 oral.liqd 09/20/20 Unknown Rx Chlorhexidine Mouthwash [Peridex] 15 ml MM BID #1 bottle 05/30/21 Unknown Rx Naproxen 375 mg PO BID PRN #14 tablet 05/30/21 Unknown Rx Penicillin Vk [Veetids TAB] 500 mg PO QID 7 Days #56 tablet 05/30/21 Unknown Rx Allergies Allergy/AdvReac Type Severity Reaction Status Date / Time adhesive tape AdvReac Swelling Verified 09/18/20 10:02 ED Dental HPI - General Chief complaint: Dental/Oral Stated complaint: TOOTHACHE Time Seen by Provider: 05/30/21 11:06 Source: patient Mode of arrival: Ambulatory Limitations: No Limitations - Related Data Home Medications Medication Instructions Recorded Confirmed Last Taken Prednisone [predniSONE ([place]) ER 3 mg PO BID 09/18/20 09/18/20 Unknown TAB] Previous Rx's Medication Instructions Recorded Last Taken Type Fludrocortisone [Florinef] 0.05 mg PO QDAY #30 09/20/20 Unknown Rx Magnesium Oxide [Mag-Ox] 400 mg PO QDAY #7 tablet 09/20/20 Unknown Rx Phosphorus #1 [K-Phos Neutral] 250 mg PO QID #7 tablet 09/20/20 Unknown Rx predniSONE [predniSONE Oral Liq] 3 mg PO BID #30 oral.liqd 09/20/20 Unknown Rx Chlorhexidine Mouthwash [Peridex] 15 ml MM BID #1 bottle 05/30/21 Unknown Rx Naproxen 375 mg PO BID PRN #14 tablet 05/30/21 Unknown Rx Penicillin Vk [Veetids TAB] 500 mg PO QID 7 Days #56 tablet 05/30/21 Unknown Rx Allergies Allergy/AdvReac Type Severity Reaction Status Date / Time adhesive tape AdvReac Swelling Verified 09/18/20 10:02 ED Review of Systems ROS: Stated complaint: TOOTHACHE Other details as noted in HPI Comment: All other systems reviewed and negative ED Past Medical Hx - Past Medical History Previous Medical History?: Yes Additional medical history: ADDISION - Surgical History Past Surgical History?: Yes Additional Surgical History: CYST REMOVED/ PART OF BLADDER REMOVED. - Social History Smoking Status: Never Smoker - Medications Home Medications: Home Medications Medication Instructions Recorded Confirmed Last Taken Type Prednisone [predniSONE ([place]) ER 3 mg PO BID 09/18/20 09/18/20 Unknown History TAB] Fludrocortisone [Florinef] 0.05 mg PO QDAY #30 09/20/20 Unknown Rx Magnesium Oxide [Mag-Ox] 400 mg PO QDAY #7 tablet 09/20/20 Unknown Rx Phosphorus #1 [K-Phos Neutral] 250 mg PO QID #7 tablet 09/20/20 Unknown Rx predniSONE [predniSONE Oral Liq] 3 mg PO BID #30 oral.liqd 09/20/20 Unknown Rx Chlorhexidine Mouthwash [Peridex] 15 ml MM BID #1 bottle 05/30/21 Unknown Rx Naproxen 375 mg PO BID PRN #14 tablet 05/30/21 Unknown Rx Penicillin Vk [Veetids TAB] 500 mg PO QID 7 Days #56 tablet 05/30/21 Unknown Rx ED Physical Exam - General Limitations: No Limitations General appearance: alert, in no apparent distress - Head Head exam: Present: atraumatic, normocephalic - Eye Eye exam: Present: normal appearance - ENT ENT exam: Present: mucous membranes moist, other (partially cracked right lower back molar, no obvious gum edema, no facial edema, uvula is midline, no uvular edema or deviation, no trismus, no tongue elevation, no muffled voice ) - Respiratory Respiratory exam: Absent: respiratory distress, accessory muscle use - Neurological Exam Neurological exam: Present: alert, oriented X3 - Psychiatric Psychiatric exam: Present: normal affect, normal mood - Skin Skin exam: Present: warm, dry, intact ED Course Vital Signs 05/30/21 11:04 Temperature 98.5 F Pulse Rate 78 Respiratory 16 Rate Blood Pressure 114/75 O2 Sat by Pulse 100 Oximetry ED Medical Decision Making - Medical Decision Making Patient is a 25-year-old female presents emergency room complaints of right lower dental pain that began a week ago. Patient states that she cracked her right lower back molar. She states she was advised by dentist that it needs to be removed. States her appointment is not until June. She denies any fever, vomiting, diarrhea, difficulty swallowing, difficulty breathing. 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 No allergies to medications. Vitals are normal. On exam:partially cracked right lower back molar, no obvious gum edema, no facial edema, uvula is midline, no uvular edema or deviation, no trismus, no tongue elevation, no muffled voice. No signs of dental abscess, facial cellulitis, facial abscess, or Ludwigs at this time. Given that patient is on steroid therapy will cover with antibiotics to prevent infection. Given prescription for medications. Advised patient Please take medication as prescribed. Follow-up with your dentist. Return to emergency room for any new or worsening symptoms. Critical care attestation.: If time is entered above; I have spent that time in minutes in the direct care of this critically ill patient, excluding procedure time. ED Disposition Clinical Impression: Cracked tooth, Dentalgia Disposition: HOME / SELF CARE / HOMELESS Is pt being admited?: No Does the pt Need Aspirin: No Condition: Stable Instructions: Tooth Injuries, [id number] Additional Instructions: Please take medication as prescribed. Follow-up with your dentist. Return to emergency room for any new or worsening symptoms. Prescriptions: Naproxen 375 mg PO BID PRN #14 tablet PRN Reason: pain Chlorhexidine Mouthwash [Peridex] 15 ml MM BID #1 bottle Penicillin Vk [Veetids TAB] 500 mg PO QID 7 Days #56 tablet Referrals: your, dentist [Other] - 3-5 Days Time of Disposition: 11:13 Print Language: AZERI
== END 2021-05-30 12:14 | disposition home or self-care (01) ==
LOC: ED 10:58
DX: K03.81 Cracked tooth (principal); K08.89 Other specified disorders of teeth and supporting structures; Z98.890 Other specified postprocedural states; Z91.048 Other nonmedicinal substance allergy status
CPT/HCPCS: 99281